=== PATIENT | male | born 1925 | race Caucasian/White ===

== ENCOUNTER 2016-12-08 19:05 | Emergency (ER) | payer MEDICARE, BC ==
[2016-12-08 19:16] VITALS: BP 180/53
[2016-12-08 19:45] LABS: CHLORIDE,CL 93 mmol/L (98-107); SODIUM,NA 129 mmol/L (136-145)
--- NOTE | 2016-12-08 20:00 | EDM.PDOC ---
ED HPI GENERAL MEDICAL PROBLEM - General Chief Complaint: Gastrointestinal Problem Stated Complaint: abdominal pain Time Seen by Provider: 12/08/16 19:57 Source of Information: Reports: Patient History Limitations: Reports: Other (Vague when reviewing history) - History of Present Illness INITIAL COMMENTS - FREE TEXT/NARRATIVE: Patient from [place] brought in for complaint of intermittent abdominal pain. Gradually worsening in intensity. Patient says pain waxes and wanes, periodically becoming sharp. Then improves. No specific trigger for pain, such as eating or drinking. Nothing specifically makes it better. Does not recall similar pain in past. Has had multiple small bowel movements that are very "hard" per patient. History of chronic constipation. He feels abdomen is a bit bloated. abdomen Pain Score (Numeric/FACES): 6 - Related Data Allergies Allergy/AdvReac Type Severity Reaction Status Date / Time bacitracin [From Cortisporin] Allergy Unknown Verified 12/08/16 19:24 bacitracin zinc Allergy Unknown Verified 12/08/16 19:24 [From Cortisporin] hydrocortisone Allergy Unknown Verified 12/08/16 19:24 [From Cortisporin] ibuprofen Allergy unknown Verified 12/08/16 19:24 neomycin [Neomycin] Allergy Unknown Verified 12/08/16 19:24 neomycin sulfate Allergy Unknown Verified 12/08/16 19:24 [From Cortisporin] Penicillins Allergy unknown Verified 12/08/16 19:24 polymyxin B Allergy Unknown Verified 12/08/16 19:24 [From Cortisporin] polymyxin B sulfate Allergy Unknown Verified 12/08/16 19:24 [From Cortisporin] Home Meds: Home Meds Acetaminophen [Tylenol] 650 mg PO Q6H PRN 09/12/13 [History] Aspirin [Halfprin] 81 mg PO DAILY 09/12/13 [History] Fish Oil/[place]-3 Fatty Acids [Fish Oil 1,000 MG] 1 each PO BID 09/12/13 [History ] Furosemide [Lasix] 20 mg PO DAILY 09/12/13 [History] Lisinopril [Zestril] 40 mg PO DAILY 09/12/13 [History] Menthol [Cough Drops] 1 lozenge PO ASDIRECTED PRN 09/12/13 [History] Multivitamin with Minerals [Multiple Vitamin] 1 tab PO DAILY 09/12/13 [History] Nitroglycerin [Nitrostat] 0.4 mg SL ASDIRECTED PRN 09/12/13 [History] Omeprazole 20 mg PO DAILY 09/12/13 [History] Sertraline HCl [Zoloft] 50 mg PO DAILY 09/12/13 [History] Simvastatin [Zocor] 20 mg PO BEDTIME 09/12/13 [History] Triamcinolone Acetonide [Triamcinolone Acetonide 0.025%] 15 gm .XX DAILY PRN [History] amLODIPine [Norvasc] 10 mg PO DAILY 09/12/13 [History] Cholecalciferol (Vitamin D3) [Vitamin D3] 5,000 unit PO DAILY 10/28/14 [History] Gabapentin [Neurontin] 200 mg PO BEDTIME 10/28/14 [History] Benzocaine [Anbesol] 1 applic MM ASDIRECTED PRN 12/22/15 [History] Benzocaine/Benzethon Cl [Lanacane First Aid [place]] 1 applic TP ASDIRECTED PRN [History] Dextran 70/Hypromellose [Artificial Tears] 1 drop OP TID 12/22/15 [History] Loratadine 10 mg PO DAILY 12/22/15 [History] Acetaminophen [Tylenol Arthritis] 1 tab PO BID 05/15/16 [History] Diazepam [Valium] 2 mg PO BID PRN #10 tab 05/15/16 [Rx] Magnesium Carbonate/Al Hydrox [Antacid Extra Strength Chw Tab] 1 tab PO ASDIRECTED 05/15/16 [History] Methyl Salicylate/Menthol [Salonpas Patch] 1 each TP Q8HR PRN 05/15/16 [History] Trolamine Salicylate [Sportscreme] 1 applic TOP ASDIRECTED PRN 05/15/16 [History ] traMADol [Ultram] 50 mg PO Q8H PRN #20 tablet 05/15/16 [Rx] Albuterol Sulfate 2.5 mg IH Q6H PRN 12/08/16 [History] Dextromethorphan HBr/B-Carlos [Cepacol Sorethroat-Cough Maggy] 1 each PO ASDIRECTED PRN 12/08/16 [History] Magnesium Citrate 296 ml PO ASDIRECTED #2 solution 12/08/16 [Rx] Methyl Salicylate/Menth/Camph [Bengay Ultra Strength] 1 applic TOP ASDIRECTED PRN 12/08/16 [History] Non-Formulary Medication [NF Drug] 1 applic TOP TID PRN 12/08/16 [History] Phenylephrine HCl [Sudogest PE] 10 mg PO Q4H PRN 12/08/16 [History] Past Medical History HEENT History: Reports: Cataract, Hard of Hearing, Macular Degeneration, Other ( See Below) Cardiovascular History: Reports: Angina, High Cholesterol, Hypertension, Other ( See Below) Gastrointestinal History: Reports: Chronic Constipation, GERD Musculoskeletal History: Reports: Osteoarthritis, Other (See Below) Neurological History: Reports: Neuropathy, Diabetic Psychiatric History: Reports: Anxiety, Depression Endocrine/Metabolic History: Reports: Diabetes, Type II Dermatologic History: Reports: Seborrheic Dermatitis - History Comment History Comment: Hyponatremia, hypo-osmolality. Social & Family History - Tobacco Use Smoking Status *Q: Former Smoker Used Tobacco, but Quit: Yes Month Tobacco Last Used: Unknown - Caffeine Use Caffeine Use: Reports: Coffee - Alcohol Use Days Per Week of Alcohol Use: 0 - Recreational Drug Use Recreational Drug Use: No Drug Use in Last 12 Months: No - Living Situation & Occupation Living situation: Reports: , Extended Care Facility ED ROS GENERAL - Review of Systems Review Of Systems: See Below Constitutional: Reports: Decreased Appetite. Denies: Fever, Chills, Weakness, Night Sweats, Diaphoresis HEENT: Reports: No Symptoms Respiratory: Reports: Other (Says he has coughed a few times and sneezed once today. ). Denies: Shortness of Breath, Wheezing, Pleuritic Chest Pain, Sputum Cardiovascular: Reports: No Symptoms GI/Abdominal: Reports: Abdominal Pain, Constipation, Decreased Appetite, Distension, Nausea. Denies: Diarrhea, Difficulty Swallowing, Hematemesis, Hematochezia, Melena, Vomiting : Reports: No Symptoms Musculoskeletal: Reports: No Symptoms Skin: Reports: No Symptoms Neurological: Reports: No Symptoms Psychiatric: Reports: No Symptoms ED EXAM, GI/ABD - Physical Exam Exam: See Below Exam Limited By: No Limitations General Appearance: Alert, WD/WN, No Apparent Distress, Other (Patient is in very happy mood. Readily able to sit up/transfer. Used walker easily to get to bathroom. ) Eyes: Bilateral: Normal Appearance, EOMI Ears: Normal External Exam Nose: Normal Inspection. No: Nasal Swelling, Nasal Drainage Throat/Mouth: Normal Inspection, Normal Voice, No Airway Compromise Head: Atraumatic, Normocephalic Neck: Normal Inspection, Supple, Non-Tender, Full Range of Motion Respiratory/Chest: No Respiratory Distress, Lungs Clear, No Accessory Muscle Use , Chest Non-Tender Cardiovascular: Regular Rate, Rhythm, Systolic Murmur GI/Abdominal: Soft, Hypoactive Bowel Sounds (all quadrants), Tenderness (mild, diffuse, non-focal), Other (slightly rounded appearance to abdomen). No: Guarding, Rebound, Rigidity (Male) Exam: Deferred Rectal (Males) Exam: Deferred Back Exam: Normal Inspection. No: CVA Tenderness (L), CVA Tenderness (R) Extremities: Normal Inspection, Normal Capillary Refill Neurological: Alert, Oriented, No Motor/Sensory Deficits Psychiatric: Normal Affect, Normal Mood Skin Exam: Warm, Dry, Intact, Normal Color Course - Vital Signs Last Recorded V/S: Last Vital Signs Temp 36.9 C 12/08/16 19:07 Pulse 42 L 12/08/16 19:07 Resp 24 H 12/08/16 19:07 BP 180/53 H 12/08/16 19:07 Pulse Ox 94 L 12/08/16 19:07 - Orders/Labs/Meds Orders: Active Orders 24 hr Category Date Time Status Abdomen 2V AP Flat Upright [CR] Stat Exams 12/08/16 19:22 Taken Labs: Laboratory Tests 12/08/16 12/08/16 12/08/16 Range/Units 19:25 19:25 19:45 WBC 8.5 (4.0-10.2) K/uL RBC 4.20 L (4.33-5.41) M/uL Hgb 12.3 L (13.1-16.8) g/dL Hct 35.5 L (39.0-49.0) % MCV 84.5 (84.0-98.0) fL MCH 29.3 (28.2-33.3) pg MCHC 34.6 (31.7-36.0) g/dL RDW 12.8 (11.2-14.1) % Plt Count 253 (150-350) K/uL Neut % (Auto) 68.2 (45.0-80.0) % Lymph % (Auto) 18.0 (10.0-50.0) % [place] % (Auto) 11.0 (2.0-14.0) % Eos % (Auto) 2.6 (0.0-5.0) % Baso % (Auto) 0.2 (0.0-2.0) % Neut # (Auto) 5.77 (1.40-7.00) K/uL Lymph # (Auto) 1.52 (0.50-3.50) K/uL [place] # (Auto) 0.93 (0.00-1.00) K/uL Eos # (Auto) 0.22 (0.00-0.50) K/uL Baso # (Auto) 0.02 (0.00-0.20) K/uL Sodium 129 L (136-145) mmol/L Potassium 4.0 (3.5-5.1) mmol/L Chloride 93 L (98-107) mmol/L Carbon Dioxide 25.4 (21.0-32.0) mmol/L BUN 10 (7-18) mg/dL Creatinine 0.71 (0.51-1.17) mg/dL Est Cr Clr Drug Dosing TNP Estimated GFR (MDRD) > 60 mL/min Glucose 132 H (74-106) mg/dL Calcium 8.5 (8.5-10.1) mg/dL Total Bilirubin 0.5 (0.2-1.0) mg/dL AST 25 (15-37) U/L ALT 28 (12-78) U/L Alkaline Phosphatase 65 (46-116) IU/L Total Protein 6.5 (6.4-8.2) g/dL Albumin 3.8 (3.4-5.0) g/dL Specimen Type Urinblad Urine Color Yellow Urine Appearance Clear Urine pH 6.0 (5.0-9.0) Ur Specific [place] 1.010 (1.005-1.030) Urine Protein Trace H (NEGATIVE) mg/dL Urine Glucose (UA) Negative (NEGATIVE) mg/dL Urine Ketones Negative (NEGATIVE) mg/dL Urine Occult Blood Trace-intact H (NEGATIVE) Urine Nitrite Negative (NEGATIVE) Urine Bilirubin Negative (NEGATIVE) Urine Urobilinogen 0.2 (0.2-1.0) E.U./dL Ur Leukocyte Esterase Negative (NEGATIVE) Urine RBC 0-5 /HPF Urine WBC 0-5 /HPF Ur Epithelial Cells Rare /LPF Urine Bacteria Rare (NONE TO FEW) /HPF - Radiology Interpretation Free Text/Narrative:: Abdominal film: no air/fluid levels noted. Larger amount of stool noted in ascending colon. No obvious obstruction/ileus - Re-Assessments/Exams Free Text/Narrative Re-Assessment/Exam: 12/08/16 20:39 Mild hyponatremia noted. Review of chart shows that he usually runs around 129- 132 for sodium level. Normal WBC. UA normal. [facility] noted prior to sending patient that Vital Signs have been stable for patient. He does usually run in this bradycardic range. Plan at this time is to have patient use Mag Citrate to see if promoting a bowel movement will improve his pain. He does have history of chronic constipation. If pain persists or symptoms change he will need to follow up for re-evaluation. Departure - Departure Time of Disposition: 20:13 Disposition: DC/[facility] to [facility] Condition: good Clinical Impression: Abdominal pain, Hyponatremia, Bradycardia Constipation Qualifiers: Constipation type: unspecified constipation type Qualified Code(s): K59.00 - Constipation, unspecified - Discharge Information Prescriptions: Magnesium Citrate 296 ml PO ASDIRECTED #2 solution Instructions: Constipation, Adult, [id number], Hyponatremia, [id number] Referrals: Jennifer Sepulveda PA [Primary Care Provider] - Forms: ED Department Discharge Additional Instructions: Constipation could be causing these symptoms. Plan will be to promote bowel movements and see if pain resolves. If it does not, or if you start developing other symptoms such as fevers, then you will need to be re-evaluated and have further testing done. We will have you drink one bottle of the Mag Citrate tonight. If this is constipation one dose does not usually fix it fully. Recommend 1/2 a bottle on day two, and possible the other half on day 3 depending on how you feel. OK to add extra salt to food. Review of previous labs shows that you often have sodium levels in this range. Recommend recheck of sodium and discuss follow up of sodium with primary provider. - My Orders Last 24 Hours: My Active Orders 12/08/16 19:22 Abdomen 2V AP Flat Upright [CR] Stat - Assessment/Plan Last 24 Hours: My Active Orders 12/08/16 19:22 Abdomen 2V AP Flat Upright [CR] Stat
[2016-12-08] MEDS ORDERED: Magnesium Citrate Solution 296 ML Bottle PO ONE ×2 (20:57→21:01)
== END 2016-12-08 21:07 ==
LOC: LL.ED 19:05
DX: K59.00 Constipation, unspecified (principal); E87.1 Hypo-osmolality and hyponatremia; R00.1 Bradycardia, unspecified; I10 Essential (primary) hypertension; E78.00 Pure hypercholesterolemia, unspecified; K21.9 Gastro-esophageal reflux disease without esophagitis; F41.9 Anxiety disorder, unspecified; F32.9 Major depressive disorder, single episode, unspecified; M19.90 Unspecified osteoarthritis, unspecified site; E11.40 Type 2 diabetes mellitus with diabetic neuropathy, unspecified; Z88.0 Allergy status to penicillin; Z88.8 Allergy status to other drugs, medicaments and biological substances; Z79.82 Long term (current) use of aspirin; Z79.899 Other long term (current) drug therapy; Z87.891 Personal history of nicotine dependence; Z88.1 Allergy status to other antibiotic agents; Z88.6 Allergy status to analgesic agent
CPT/HCPCS: 36415; 74020; 80053; 81001; 85025; 99283; 99284; A9270

== ENCOUNTER 2016-12-10 15:57 | Inpatient (IN) | payer MEDICARE, BC ==
[2016-12-10] MEDS ORDERED: Ondansetron 4 MG/2 ML SDV IVPUSH PRN (17:51)
[2016-12-10] MEDS ORDERED: Promethazine 25 MG/ML SDV IM PRN (17:51)
[2016-12-10] MEDS ORDERED: Sodium Chloride 0.9% 10 ML Syringe FLUSH PRN (17:51)
[2016-12-10] MEDS ORDERED: Nitroglycerin 0.4 MG Tab.SL SL PRN ×2 (17:56→22:28)
--- NOTE | 2016-12-10 18:29 | PCM.HP ---
H&P History of Present Illness - General Date of Service: 12/10/16 Admit Problem/Dx: Admission Diagnosis/Problem Admission Diagnosis/Problem Abdominal pain Source of Information: Patient, Old Records History Limitations: Reports: No Limitations - History of Present Illness Onset of Symptoms: Reports: Other (couple of days ago) Duration of Symptoms: Reports: Getting Worse Location: Reports: Chest, Abdomen, Back Quality: Reports: Pressure, Same as Previous Episode (one year delvis) Severity: Moderate Improves with: Reports: None Worsens with: Reports: Eating Associated Symptoms: Reports: Chest Pain, Loss of Appetite, Nausea/Vomiting, Shortness of Breath Abdomen Pain Score (Numeric/FACES): 3 - Related Data Allergies/Adverse Reactions: Allergies Allergy/AdvReac Type Severity Reaction Status Date / Time bacitracin [From Cortisporin] Allergy Unknown Verified 12/10/16 16:05 bacitracin zinc Allergy Unknown Verified 12/10/16 16:05 [From Cortisporin] hydrocortisone Allergy Unknown Verified 12/10/16 16:05 [From Cortisporin] ibuprofen Allergy unknown Verified 12/10/16 16:05 neomycin [Neomycin] Allergy Unknown Verified 12/10/16 16:05 neomycin sulfate Allergy Unknown Verified 12/10/16 16:05 [From Cortisporin] Penicillins Allergy unknown Verified 12/10/16 16:05 polymyxin B Allergy Unknown Verified 12/10/16 16:05 [From Cortisporin] polymyxin B sulfate Allergy Unknown Verified 12/10/16 16:05 [From Cortisporin] Home Medications: Home Meds Acetaminophen [Tylenol] 650 mg PO Q6H PRN 09/12/13 [History] Aspirin [Halfprin] 81 mg PO DAILY 09/12/13 [History] Fish Oil/[place]-3 Fatty Acids [Fish Oil 1,000 MG] 1 each PO BID 09/12/13 [History ] Furosemide [Lasix] 20 mg PO DAILY 09/12/13 [History] Lisinopril [Zestril] 40 mg PO DAILY 09/12/13 [History] Multivitamin with Minerals [Multiple Vitamin] 1 tab PO DAILY 09/12/13 [History] Nitroglycerin [Nitrostat] 0.4 mg SL ASDIRECTED PRN 09/12/13 [History] Omeprazole 20 mg PO DAILY 09/12/13 [History] Sertraline HCl [Zoloft] 50 mg PO DAILY 09/12/13 [History] Simvastatin [Zocor] 20 mg PO BEDTIME 09/12/13 [History] Triamcinolone Acetonide [Triamcinolone Acetonide 0.025%] 15 gm TOP DAILY PRN [History] amLODIPine [Norvasc] 10 mg PO DAILY 09/12/13 [History] Cholecalciferol (Vitamin D3) [Vitamin D3] 5,000 unit PO DAILY 10/28/14 [History] Gabapentin [Neurontin] 200 mg PO BEDTIME 10/28/14 [History] Benzocaine [Anbesol] 1 applic TOP ASDIRECTED PRN 12/22/15 [History] Benzocaine/Benzethon Cl [Lanacane First Aid [place]] 1 applic TP ASDIRECTED PRN [History] Dextran 70/Hypromellose [Artificial Tears] 1 drop OP TID 12/22/15 [History] Loratadine 10 mg PO DAILY 12/22/15 [History] Acetaminophen [Tylenol Arthritis] 1 tab PO TID 05/15/16 [History] Diazepam [Valium] 2 mg PO BID PRN #10 tab 05/15/16 [Rx] Magnesium Carbonate/Al Hydrox [Antacid Extra Strength Chw Tab] 1 tab PO ASDIRECTED 05/15/16 [History] Methyl Salicylate/Menthol [Salonpas Patch] 1 each TP Q8HR PRN 05/15/16 [History] Trolamine Salicylate [Sportscreme] 1 applic TOP ASDIRECTED PRN 05/15/16 [History ] traMADol [Ultram] 50 mg PO Q8H PRN #20 tablet 05/15/16 [Rx] Albuterol Sulfate 2.5 mg IH Q6H PRN 12/08/16 [History] Dextromethorphan HBr/B-Carlos [Cepacol Sorethroat-Cough Maggy] 1 each PO ASDIRECTED PRN 12/08/16 [History] Magnesium Citrate 296 ml PO ASDIRECTED #2 solution 12/08/16 [Rx] Methyl Salicylate/Menth/Camph [Bengay Ultra Strength] 1 applic TOP ASDIRECTED PRN 12/08/16 [History] Non-Formulary Medication [NF Drug] 1 applic TOP TID PRN 12/08/16 [History] Phenylephrine HCl [Sudogest PE] 10 mg PO Q4H PRN 12/08/16 [History] Bisacodyl 10 mg RECTAL DAILY PRN 12/10/16 [History] Melaleuca 1 applic TOP ASDIRECTED PRN 12/10/16 [History] Past Medical History HEENT History: Reports: Cataract, Hard of Hearing, Impaired Vision, Macular Degeneration, Other (See Below) Other HEENT History: Has bilateral hearing aides. Wears glasses. HX. Macular degeneration Cardiovascular History: Reports: Angina, High Cholesterol, Hypertension, Other ( See Below) Respiratory History: Reports: COPD, Pneumonia, Recurrent Gastrointestinal History: Reports: Chronic Constipation, GERD Musculoskeletal History: Reports: Osteoarthritis, Other (See Below) Neurological History: Reports: Neuropathy, Diabetic Psychiatric History: Reports: Anxiety, Depression Endocrine/Metabolic History: Reports: Diabetes, Type II Dermatologic History: Reports: Seborrheic Dermatitis - History Comment History Comment: Hyponatremia, hypo-osmolality. Social & Family History - Tobacco Use Smoking Status *Q: Former Smoker Used Tobacco, but Quit: Yes Month Tobacco Last Used: Unknown - Caffeine Use Caffeine Use: Reports: Coffee - Alcohol Use Days Per Week of Alcohol Use: 0 - Recreational Drug Use Recreational Drug Use: No Drug Use in Last 12 Months: No - Living Situation & Occupation Living situation: Reports: , Extended Care Facility H&P Review of Systems - Review of Systems: Review Of Systems: See Below General: Reports: Weakness, Decreased Appetite HEENT: Reports: No Symptoms Pulmonary: Reports: Shortness of Breath Cardiovascular: Reports: Chest Pain Gastrointestinal: Reports: Abdominal Pain, Anorexia, Constipation, Decreased Appetite, Distension, Nausea, Vomiting Genitourinary: Reports: No Symptoms Musculoskeletal: Reports: No Symptoms Skin: Reports: No Symptoms Psychiatric: Reports: No Symptoms Neurological: Reports: No Symptoms Hematologic/Lymphatic: Reports: No Symptoms Immunologic: Reports: No Symptoms Exam - Exam Exam: See Below - Vital Signs Vital Signs: Last Vital Signs Temp 98.0 F 12/10/16 16:04 Pulse 48 L 12/10/16 16:04 Resp 20 12/10/16 16:04 BP 157/72 H 12/10/16 16:04 Pulse Ox 94 L 12/10/16 16:04 Weight: 176 lb - Exam General: Alert, Cooperative, Mild Distress HEENT: Conjunctiva Clear, Mucosa Moist & [place], Nares Patent, Posterior Pharynx Clear Neck: Trachea Midline Lungs: Normal Respiratory Effort, Decreased Breath Sounds Cardiovascular: Regular Rate, Regular Rhythm Abdomen: Normal Bowel Sounds, Distention, Tenderness (Male) Exam: No Hernia Rectal (Males) Exam: Normal Exam Back Exam: Normal Inspection Extremities: Normal Inspection Skin: Warm, Dry, Intact Neuro Extensive - Mental Status: Alert, Normal Mood/Affect Psychiatric: Alert, Normal Affect, Normal Mood - Patient Data Lab Results last 24 hrs: Laboratory Results - last 24 hr 12/10/16 Range/Units 18:10 WBC 9.1 (4.0-10.2) K/uL RBC 4.19 L (4.33-5.41) M/uL Hgb 12.3 L (13.1-16.8) g/dL Hct 35.7 L (39.0-49.0) % MCV 85.2 (84.0-98.0) fL MCH 29.4 (28.2-33.3) pg MCHC 34.5 (31.7-36.0) g/dL RDW 12.6 (11.2-14.1) % Plt Count 273 (150-350) K/uL Neut % (Auto) 75.8 (45.0-80.0) % Lymph % (Auto) 11.0 (10.0-50.0) % [place] % (Auto) 10.9 (2.0-14.0) % Eos % (Auto) 1.9 (0.0-5.0) % Baso % (Auto) 0.4 (0.0-2.0) % Neut # (Auto) 6.90 (1.40-7.00) K/uL Lymph # (Auto) 1.00 (0.50-3.50) K/uL [place] # (Auto) 0.99 (0.00-1.00) K/uL Eos # (Auto) 0.17 (0.00-0.50) K/uL Baso # (Auto) 0.04 (0.00-0.20) K/uL Result Diagrams: 12/10/16 18:10 *Q Meaningful Use (ADM) - VTE *Q VTE Criteria *Q: - Stroke *Q Stroke Criteria *Q: - AMI *Q AMI Criteria *Q: - Problem List (1) Abdominal pain SNOMED Code(s): 44216160 ICD Code: R10.9 - UNSPECIFIED ABDOMINAL PAIN Status: Acute Priority: High Current Visit: No (2) Atypical chest pain SNOMED Code(s): 945917368 ICD Code: R07.89 - OTHER CHEST PAIN Status: Acute Priority: High Current Visit: No (3) Bradycardia SNOMED Code(s): 40012841 ICD Code: R00.1 - BRADYCARDIA, UNSPECIFIED Status: Acute Priority: Medium Current Visit: No (4) Constipation SNOMED Code(s): 31363921 ICD Code: K59.00 - CONSTIPATION, UNSPECIFIED Status: Acute Priority: High Current Visit: No Qualifiers: Constipation type: unspecified constipation type Qualified Code(s): K59.00 - Constipation, unspecified (5) Hyponatremia SNOMED Code(s): 48657264 ICD Code: E87.1 - HYPO-OSMOLALITY AND HYPONATREMIA Status: Acute Current Visit: No (6) Neck and shoulder pain SNOMED Code(s): 36550869 ICD Code: M54.2 - CERVICALGIA; M25.519 - PAIN IN UNSPECIFIED SHOULDER Status: Acute Priority: Medium Current Visit: No Problem List Initiated/Reviewed/Updated: Yes Orders Last 24hrs: Active Orders 24 hr Category Date Time Status Patient Status [ADT] Routine ADT 12/10/16 18:05 Active Ambulate [RC] ASDIRECTED Care 12/10/16 18:04 Active Antiembolic Devices [RC] .Routine Care 12/10/16 18:13 Active EKG Documentation Completion [RC] ASDIRECTED Care 12/10/16 17:56 Active Height and Weight [RC] UPON Care 12/10/16 18:04 Active Intake and Output [RC] QSHIFT Care 12/10/16 18:10 Active May Shower [RC] ASDIRECTED Care 12/10/16 18:04 Active Oxygen Therapy [RC] PRN Care 12/10/16 18:11 Active Peripheral IV Care [RC] . DIRECTED Care 12/10/16 17:53 Active Pulse Oximetry [RC] PRN Care 12/10/16 18:11 Active VTE/DVT Education [RC] PER UNIT ROUTINE Care 12/10/16 18:13 Active Vaccines to be Administered [RC] PER UNIT ROUTINE Care 12/10/16 18:13 Active Vital Signs [RC] QID Care 12/10/16 18:05 Active Nothing per Oral Now Diet [DIET] Diet 12/10/16 Dinner Active Abdomen Pelvis w wo Cont [CT] Routine Exams 12/11/16 07:00 Ordered Abdomen Series w Chest 1V [CR] Routine Exams 12/10/16 17:51 Ordered AMYLASE [CHEM] Routine Lab 12/10/16 17:51 Ordered C-REACTIVE PROTEIN [CHEM] Routine Lab 12/10/16 17:51 Ordered COMPREHENSIVE METABOLIC PN,CMP [CHEM] Routine Lab 12/10/16 17:51 Ordered LACTIC ACID [CHEM] Routine Lab 12/10/16 17:51 Ordered LIPASE [CHEM] Routine Lab 12/10/16 17:51 Ordered OCCULT BLOOD SCREEN [OP] Routine Lab 12/10/16 17:51 Uncollected TROPONIN I [CHEM] Routine Lab 12/10/16 17:51 Ordered UA W/MICROSCOPIC [URIN] Routine Lab 12/10/16 17:51 Uncollected Albuterol [Proventil Neb Soln] Med 12/10/16 17:56 Active 2.5 mg NEB Q6H PRN Famotidine [Pepcid] Med 12/10/16 18:00 Active 20 mg IVPUSH BID Nitroglycerin [Nitrostat] Med 12/10/16 17:56 Active 0.4 mg SL ASDIRECTED PRN Ondansetron [Zofran] Med 12/10/16 17:51 Active 4 mg IVPUSH Q4H PRN Polyvinyl Alcohol [LiquiTears 1.4% Ophth Soln] Med 12/10/16 18:00 Active 0 ml EYEBOTH TID Promethazine [Phenergan] Med 12/10/16 17:51 Active 12.5 mg IM Q6H PRN Sodium Chloride 0.9% [Normal Saline] 1,000 ml Med 12/10/16 18:15 Active IV ASDIRECTED Sodium Chloride 0.9% [Saline Flush] Med 12/10/16 17:51 Active 10 ml FLUSH ASDIRECTED PRN Sodium Chloride 0.9% [Saline Flush] Med 12/10/16 20:00 Active 10 ml FLUSH Q12HR DVT/VTE Prophylaxis Reflex [OM.PC] Routine Oth 12/10/16 18:04 Ordered GM Immunization Reflex [OM.PC] Click To Edit Oth 12/10/16 18:04 Ordered Peripheral IV Insertion Adult [OM.PC] Routine Oth 12/10/16 17:51 Ordered Resuscitation Status Routine Resus Stat 12/10/16 18:04 Ordered EKG 12 Lead [EK] Routine Ther 12/10/16 17:51 Ordered Medication Orders Albuterol (Proventil Neb Soln) 2.5 mg NEB Q6H PRN PRN Reason: dyspnea/wheeze Artificial Tears (Liquitears 1.4% Ophth Soln) 0 ml EYEBOTH TID CHUY Famotidine (Pepcid) 20 mg IVPUSH BID CHUY Sodium Chloride (Normal Saline) 1,000 mls @ 75 mls/hr IV ASDIRECTED CHUY Nitroglycerin (Nitrostat) 0.4 mg SL ASDIRECTED PRN PRN Reason: Chest Pain Ondansetron HCl (Zofran) 4 mg IVPUSH Q4H PRN PRN Reason: Nausea/Vomiting Promethazine HCl (Phenergan) 12.5 mg IM Q6H PRN PRN Reason: Nausea/Vomiting Sodium Chloride (Saline Flush) 10 ml FLUSH ASDIRECTED PRN PRN Reason: Keep Vein Open Sodium Chloride (Saline Flush) 10 ml FLUSH Q12HR [facility] Assessment/Plan Comment:: 12/10/16 Aquilino Elam MD Abdomenal pain and distention. Anorexia and emesis. Laxatives (mag citrate x2) and suppository very little results.Admit inpatient for IV fluids.
[2016-12-10 18:36] LABS: CHLORIDE,CL 92 mmol/L (98-107); SODIUM,NA 127 mmol/L (136-145)
[2016-12-10] MEDS: metroNIDAZOLE/Normal Saline 500 MG in Premix Bag 1 BAG IV SCH (19:28)
[2016-12-10] MEDS: Famotidine 20 MG/2 ML SDV IVPUSH SCH (19:28)
[2016-12-10] MEDS: Polyvinyl Alcohol 1.4% Ophth Soln 15 ML Bottle EYEBOTH SCH (19:28)
[2016-12-10] MEDS: Sodium Chloride 0.9% 10 ML Syringe FLUSH SCH (19:29)
[2016-12-10] MEDS: Ciprofloxacin in D5W 400 MG in Premix Bag 1 BAG IV SCH ×2 (20:41)
[2016-12-10] MEDS: Sodium Chloride 0.9% 1,000 ML IV SCH (20:41)
[2016-12-10] MEDS ORDERED: fentaNYL 100 MCG/2 ML SDV IVPUSH PRN (21:17)
[2016-12-11] MEDS: metroNIDAZOLE/Normal Saline 500 MG in Premix Bag 1 BAG IV SCH ×3 (01:07→18:06)
[2016-12-11] MEDS: Enalaprilat 1.25 MG/ML SDV IVPUSH SCH ×5 (01:08→23:27)
[2016-12-11 07:39] LABS: CHLORIDE,CL 95 mmol/L (98-107); SODIUM,NA 131 mmol/L (136-145)
[2016-12-11] MEDS: Ciprofloxacin in D5W 400 MG in Premix Bag 1 BAG IV SCH ×4 (07:45→19:48)
[2016-12-11] MEDS: Polyvinyl Alcohol 1.4% Ophth Soln 15 ML Bottle EYEBOTH SCH ×3 (07:47→18:07)
[2016-12-11] MEDS: Famotidine 20 MG/2 ML SDV IVPUSH SCH ×2 (07:47→18:02)
[2016-12-11] MEDS ORDERED: Iopamidol 612 MG/ML 100 ML Bottle IVPUSH ONE (09:00)
[2016-12-11] MEDS: Sodium Chloride 0.9% 10 ML Syringe FLUSH SCH ×2 (12:25→19:55)
[2016-12-11] MEDS: Acetaminophen 325 MG Tab PO PRN ×2 (13:45→22:09)
[2016-12-11] MEDS: Sodium Chloride 0.9% 1,000 ML IV SCH (16:35)
--- NOTE | 2016-12-11 17:30 | PCM.PN ---
- General Info Date of Service: 12/11/16 Admission Dx/Problem (Free Text): Admission Diagnosis/Problem Admission Diagnosis/Problem Abdominal pain Functional Status: Reports: pain controlled - Review of Systems General: Reports: Appetite (improved) HEENT: Reports: headaches Pulmonary: Reports: no symptoms Cardiovascular: Reports: No Symptoms Gastrointestinal: Reports: Abdominal pain (improved), Other (had a good bowel movement this AM) Genitourinary: Reports: no symptoms Musculoskeletal: Reports: no symptoms Skin: Reports: no symptoms Neurological: Reports: No Symptoms Psychiatric: Reports: no symptoms - Patient Data Vitals - most recent: Last Vital Signs Temp 96.7 F 12/11/16 16:00 Pulse 51 L 12/11/16 16:00 Resp 14 12/11/16 16:00 BP 131/64 12/11/16 16:00 Pulse Ox 94 L 12/11/16 11:59 Weight - most recent: 175 lb 15.991 oz I&O - last 24 hours: Intake & Output 12/11/16 12/11/16 12/11/16 06:59 14:59 22:59 Intake Total 678 390 Output Total 475 350 100 Balance 203 40 -100 Lab Results last 24 hrs: Laboratory Results - last 24 hr 12/10/16 12/10/16 12/10/16 Range/Units 18:10 18:10 18:10 WBC 9.1 (4.0-10.2) K/uL RBC 4.19 L (4.33-5.41) M/uL Hgb 12.3 L (13.1-16.8) g/dL Hct 35.7 L (39.0-49.0) % MCV 85.2 (84.0-98.0) fL MCH 29.4 (28.2-33.3) pg MCHC 34.5 (31.7-36.0) g/dL RDW 12.6 (11.2-14.1) % Plt Count 273 (150-350) K/uL Neut % (Auto) 75.8 (45.0-80.0) % Lymph % (Auto) 11.0 (10.0-50.0) % [place] % (Auto) 10.9 (2.0-14.0) % Eos % (Auto) 1.9 (0.0-5.0) % Baso % (Auto) 0.4 (0.0-2.0) % Neut # (Auto) 6.90 (1.40-7.00) K/uL Lymph # (Auto) 1.00 (0.50-3.50) K/uL [place] # (Auto) 0.99 (0.00-1.00) K/uL Eos # (Auto) 0.17 (0.00-0.50) K/uL Baso # (Auto) 0.04 (0.00-0.20) K/uL ESR (0-30) mm/hr Sodium 127 L (136-145) mmol/L Potassium 4.3 (3.5-5.1) mmol/L Chloride 92 L (98-107) mmol/L Carbon Dioxide 30.0 (21.0-32.0) mmol/L BUN 16 (7-18) mg/dL Creatinine 0.86 (0.51-1.17) mg/dL Est Cr Clr Drug Dosing 52.55 mL/min Estimated GFR (MDRD) > 60 mL/min Glucose 122 H (74-106) mg/dL Lactic Acid 0.9 (0.4-2.0) mmol/L Calcium 8.3 L (8.5-10.1) mg/dL Magnesium (1.8-2.4) mg/dL Total Bilirubin 0.8 (0.2-1.0) mg/dL AST 32 (15-37) U/L ALT 34 (12-78) U/L Alkaline Phosphatase 60 (46-116) IU/L Lactate Dehydrogenase (81-234) U/L Troponin I 0.012 (0.000-0.056) ng/mL C-Reactive Protein 0.4 (<=0.9) mg/dL Total Protein 6.3 L (6.4-8.2) g/dL Albumin 3.8 (3.4-5.0) g/dL Amylase 65 (25-115) U/L Lipase 313 (73-393) U/L Specimen Type Urine Color Urine Appearance Urine pH (5.0-9.0) Ur Specific [place] (1.005-1.030) Urine Protein (NEGATIVE) mg/dL Urine Glucose (UA) (NEGATIVE) mg/dL Urine Ketones (NEGATIVE) mg/dL Urine Occult Blood (NEGATIVE) Urine Nitrite (NEGATIVE) Urine Bilirubin (NEGATIVE) Urine Urobilinogen (0.2-1.0) E.U./dL Ur Leukocyte Esterase (NEGATIVE) Urine RBC /HPF Urine WBC /HPF Ur Epithelial Cells /LPF Urine Bacteria (NONE TO FEW) /HPF 12/10/16 12/11/16 12/11/16 Range/Units 22:00 06:55 06:55 WBC 9.0 (4.0-10.2) K/uL RBC 4.42 (4.33-5.41) M/uL Hgb 13.0 L (13.1-16.8) g/dL Hct 37.7 L (39.0-49.0) % MCV 85.3 (84.0-98.0) fL MCH 29.4 (28.2-33.3) pg MCHC 34.5 (31.7-36.0) g/dL RDW 12.7 (11.2-14.1) % Plt Count 267 (150-350) K/uL Neut % (Auto) 64.2 (45.0-80.0) % Lymph % (Auto) 22.5 (10.0-50.0) % [place] % (Auto) 10.0 (2.0-14.0) % Eos % (Auto) 2.9 (0.0-5.0) % Baso % (Auto) 0.4 (0.0-2.0) % Neut # (Auto) 5.77 (1.40-7.00) K/uL Lymph # (Auto) 2.02 (0.50-3.50) K/uL [place] # (Auto) 0.90 (0.00-1.00) K/uL Eos # (Auto) 0.26 (0.00-0.50) K/uL Baso # (Auto) 0.04 (0.00-0.20) K/uL ESR 3 (0-30) mm/hr Sodium 131 L (136-145) mmol/L Potassium 3.9 (3.5-5.1) mmol/L Chloride 95 L (98-107) mmol/L Carbon Dioxide 28.0 (21.0-32.0) mmol/L BUN 12 (7-18) mg/dL Creatinine 0.81 (0.51-1.17) mg/dL Est Cr Clr Drug Dosing 55.79 mL/min Estimated GFR (MDRD) > 60 mL/min Glucose 117 H (74-106) mg/dL Lactic Acid (0.4-2.0) mmol/L Calcium 8.1 L (8.5-10.1) mg/dL Magnesium 2.0 (1.8-2.4) mg/dL Total Bilirubin 0.9 (0.2-1.0) mg/dL AST 35 (15-37) U/L ALT 38 (12-78) U/L Alkaline Phosphatase 55 (46-116) IU/L Lactate Dehydrogenase 161 (81-234) U/L Troponin I 0.017 (0.000-0.056) ng/mL C-Reactive Protein 0.2 (<=0.9) mg/dL Total Protein 6.5 (6.4-8.2) g/dL Albumin 3.7 (3.4-5.0) g/dL Amylase (25-115) U/L Lipase (73-393) U/L Specimen Type Urincc Urine Color Yellow Urine Appearance Clear Urine pH 7.5 (5.0-9.0) Ur Specific [place] 1.015 (1.005-1.030) Urine Protein Negative (NEGATIVE) mg/dL Urine Glucose (UA) Negative (NEGATIVE) mg/dL Urine Ketones 15 H (NEGATIVE) mg/dL Urine Occult Blood Negative (NEGATIVE) Urine Nitrite Negative (NEGATIVE) Urine Bilirubin Negative (NEGATIVE) Urine Urobilinogen 0.2 (0.2-1.0) E.U./dL Ur Leukocyte Esterase Negative (NEGATIVE) Urine RBC Not seen /HPF Urine WBC 0-5 /HPF Ur Epithelial Cells Few /LPF Urine Bacteria Rare (NONE TO FEW) /HPF Sid Results last 24 hrs: Microbiology 12/10/16 17:51 Occult Blood - Final Stool / Feces Med Orders - Current: Current Medications Acetaminophen (Tylenol) 650 mg PO Q3H PRN PRN Reason: Pain/Fever Last Admin: 12/11/16 13:45 Dose: 650 mg Albuterol (Proventil Neb Soln) 2.5 mg NEB Q6H PRN PRN Reason: dyspnea/wheeze Artificial Tears (Liquitears 1.4% Ophth Soln) 0 ml EYEBOTH TID CHUY Last Admin: 12/11/16 12:25 Dose: Not Given Enalaprilat (Vasotec Iv) 0.625 mg IVPUSH Q6H [facility] Last Admin: 12/11/16 12:25 Dose: 0.625 mg Famotidine (Pepcid) 20 mg IVPUSH BID [facility] Last Admin: 12/11/16 07:47 Dose: 20 mg Fentanyl (Sublimaze) 25 mcg IVPUSH Q3H PRN PRN Reason: Pain Sodium Chloride (Normal Saline) 1,000 mls @ 75 mls/hr IV ASDIRECTED [facility] Last Admin: 12/11/16 16:35 Dose: 75 mls/hr Metronidazole 500 mg/ Premix 100 mls @ 100 mls/hr IV Q8H [facility] Last Admin: 12/11/16 10:16 Dose: 100 mls/hr Ciprofloxacin/Dextrose 400 mg/ (Premix) 200 mls @ 200 mls/hr IV Q12HR [facility] Last Admin: 12/11/16 07:45 Dose: 200 mls/hr Nitroglycerin (Nitrostat) 0.4 mg SL Q5M PRN PRN Reason: Chest Pain Ondansetron HCl (Zofran) 4 mg IVPUSH Q4H PRN PRN Reason: Nausea/Vomiting Promethazine HCl (Phenergan) 12.5 mg IM Q6H PRN PRN Reason: Nausea/Vomiting Sodium Chloride (Saline Flush) 10 ml FLUSH ASDIRECTED PRN PRN Reason: Keep Vein Open Sodium Chloride (Saline Flush) 10 ml FLUSH Q12HR [facility] Last Admin: 12/11/16 12:25 Dose: Not Given Discontinued Medications Iopamidol (Isovue-300 (61%)) 100 ml IVPUSH ONETIME ONE Stop: 12/11/16 09:01 Last Admin: 12/11/16 10:04 Dose: 100 ml Nitroglycerin (Nitrostat) 0.4 mg SL ASDIRECTED PRN PRN Reason: Chest Pain Sodium Chloride (Saline Flush) 10 ml FLUSH ASDIRECTED PRN PRN Reason: Keep Vein Open Last Admin: 12/11/16 10:13 Dose: 10 ml - Exam General: alert, cooperative, no acute distress HEENT: Mucous membr. moist/pink Neck: trachea midline, no JVD Lungs: Normal respiratory effort, Decreased breath sounds Cardiovascular: Regular Rate, Regular Rhythm Abdomen: bowel sounds present, soft, tenderness (over RLQ herniorrhaphy scar), distension (decreased) (Male) Exam: No Hernia Back Exam: Normal Inspection Extremities: no edema, no calf tenderness Skin: warm, dry, intact Neurological: no new focal deficit Psy/Mental Status: alert, normal affect, normal mood - Problem List & Annotations (1) Abdominal pain SNOMED Code(s): 37500155 Code(s): R10.9 - UNSPECIFIED ABDOMINAL PAIN Status: Acute Priority: High Current Visit: No (2) Atypical chest pain SNOMED Code(s): 716773323 Code(s): R07.89 - OTHER CHEST PAIN Status: Acute Priority: High Current Visit: No (3) Bradycardia SNOMED Code(s): 52480464 Code(s): R00.1 - BRADYCARDIA, UNSPECIFIED Status: Acute Priority: Medium Current Visit: No (4) Constipation SNOMED Code(s): 70104838 Code(s): K59.00 - CONSTIPATION, UNSPECIFIED Status: Acute Priority: High Current Visit: No Qualifiers: Constipation type: unspecified constipation type Qualified Code(s): K59.00 - Constipation, unspecified (5) Hyponatremia SNOMED Code(s): 21534660 Code(s): E87.1 - HYPO-OSMOLALITY AND HYPONATREMIA Status: Acute Current Visit: No (6) Neck and shoulder pain SNOMED Code(s): 74524782 Code(s): M54.2 - CERVICALGIA; M25.519 - PAIN IN UNSPECIFIED SHOULDER Status : Acute Priority: Medium Current Visit: No - Problem List Review Problem List Initiated/Reviewed/Updated: Yes - My Orders Last 24 Hours: My Active Orders 12/10/16 17:51 Abdomen Series w Chest 1V [CR] Routine Ondansetron [Zofran] 4 mg IVPUSH Q4H PRN Promethazine [Phenergan] 12.5 mg IM Q6H PRN Sodium Chloride 0.9% [Saline Flush] 10 ml FLUSH ASDIRECTED PRN Peripheral IV Insertion Adult [OM.PC] Routine 12/10/16 17:53 Peripheral IV Care [RC] 00,16,20 12/10/16 17:56 EKG Documentation Completion [RC] ASDIRECTED Albuterol [Proventil Neb Soln] 2.5 mg NEB Q6H PRN 12/10/16 18:00 Famotidine [Pepcid] 20 mg IVPUSH BID Polyvinyl Alcohol [LiquiTears 1.4% Ophth Soln] 0 ml EYEBOTH TID metroNIDAZOLE/Normal Saline [Flagyl 500 MG in NS 100 ML] 500 mg Premix Bag 1 bag IV Q8H 12/10/16 18:04 Ambulate [RC] 0800 Height and Weight [RC] UPON May Shower [RC] 0800 DVT/VTE Prophylaxis Reflex [OM.PC] Routine GM Immunization Reflex [OM.PC] Click To Edit Resuscitation Status Routine 12/10/16 18:05 Patient Status [ADT] Routine Vital Signs [RC] QID 12/10/16 18:10 Intake and Output [RC] QSHIFT 12/10/16 18:11 Oxygen Therapy [RC] PRN Pulse Oximetry [RC] QID 12/10/16 18:13 Antiembolic Devices [RC] .Routine VTE/DVT Education [RC] PER UNIT ROUTINE Vaccines to be Administered [RC] PER UNIT ROUTINE 12/10/16 18:15 Sodium Chloride 0.9% [Normal Saline] 1,000 ml IV ASDIRECTED 12/10/16 20:00 Ciprofloxacin in D5W [Cipro in D5W 400 MG/200 ML] 400 mg Premix Bag 1 bag IV Q12HR Sodium Chloride 0.9% [Saline Flush] 10 ml FLUSH Q12HR 12/10/16 21:17 fentaNYL [Sublimaze] 25 mcg IVPUSH Q3H PRN 12/10/16 22:28 Nitroglycerin [Nitrostat] 0.4 mg SL Q5M PRN 12/10/16 Dinner Nothing per Oral Now Diet [DIET] 12/11/16 00:00 Enalaprilat [Vasotec IV] 0.625 mg IVPUSH Q6H 12/11/16 05:11 Chest 2V [CR] Routine 12/11/16 07:00 Abdomen Pelvis w Cont [CT] Routine 12/11/16 13:27 Acetaminophen [Tylenol] 650 mg PO Q3H PRN 12/12/16 05:11 CBC WITH AUTO DIFF [HEME] DAILY CMP [COMPREHENSIVE METABOLIC PN,CMP] [CHEM] DAILY 12/13/16 05:11 CBC WITH AUTO DIFF [HEME] DAILY CMP [COMPREHENSIVE METABOLIC PN,CMP] [CHEM] DAILY - Plan Plan:: 12/10/16 Aquilino Elam MD Abdomenal pain and distention. Anorexia and emesis. Laxatives (mag citrate x2) and suppository very little results.Admit inpatient for IV fluids. 12/11/16 Aquilino Elam MD He is feeling better today. After CT oral contrast he had a large bowel movement. CT scan results pending. He says he has URI and headache.
[2016-12-11] MEDS: Sodium Chloride 0.9% 10 ML Syringe FLUSH PRN (23:32)
[2016-12-12] MEDS: metroNIDAZOLE/Normal Saline 500 MG in Premix Bag 1 BAG IV SCH ×3 (01:31→19:17)
[2016-12-12] MEDS: Sodium Chloride 0.9% 10 ML Syringe FLUSH PRN (01:32)
[2016-12-12] MEDS: Enalaprilat 1.25 MG/ML SDV IVPUSH SCH ×2 (05:16→11:09)
[2016-12-12] MEDS: Sodium Chloride 0.9% 1,000 ML IV SCH (07:25)
[2016-12-12 08:00] LABS: CHLORIDE,CL 99 mmol/L (98-107); SODIUM,NA 132 mmol/L (136-145)
[2016-12-12] MEDS: Ciprofloxacin in D5W 400 MG in Premix Bag 1 BAG IV SCH ×4 (08:11→21:06)
[2016-12-12] MEDS: Polyvinyl Alcohol 1.4% Ophth Soln 15 ML Bottle EYEBOTH SCH ×3 (08:12→19:20)
[2016-12-12] MEDS: Sodium Chloride 0.9% 10 ML Syringe FLUSH SCH ×2 (08:12→19:29)
[2016-12-12] MEDS: Famotidine 20 MG/2 ML SDV IVPUSH SCH ×2 (08:12→19:20)
[2016-12-12] MEDS ORDERED: LORazepam 0.5 MG Tab PO ONE (16:00)
[2016-12-12] MEDS ORDERED: amLODIPine 5 MG Tab PO ONE (16:00)
[2016-12-12] MEDS ORDERED: Sodium Chloride 0.9% 1,000 ML IV SCH (16:00)
[2016-12-12] MEDS ORDERED: traMADol 50 MG Tab PO PRN (16:00)
[2016-12-12] MEDS: Acetaminophen 325 MG Tab PO PRN (16:23)
[2016-12-12] MEDS: LORazepam 0.5 MG Tab PO SCH (19:22)
[2016-12-12] MEDS: Lisinopril 20 MG Tab PO SCH (19:25)
--- NOTE | 2016-12-12 22:59 | PCM.PN ---
- General Info Date of Service: 12/12/16 Admission Dx/Problem (Free Text): Admission Diagnosis/Problem Admission Diagnosis/Problem Abdominal pain Functional Status: Reports: tolerating diet - Review of Systems General: Reports: Appetite (decreased) HEENT: Reports: headaches Pulmonary: Reports: no symptoms Cardiovascular: Reports: No Symptoms Gastrointestinal: Reports: Decreased appetite, Other (felt better this AM now feels distended) Genitourinary: Reports: no symptoms Musculoskeletal: Reports: no symptoms Skin: Reports: no symptoms Neurological: Reports: Headache Psychiatric: Reports: anxiety - Patient Data Vitals - most recent: Last Vital Signs Temp 98.0 F 12/12/16 20:00 Pulse 70 12/12/16 20:00 Resp 20 12/12/16 20:00 BP 179/70 H 12/12/16 20:00 Pulse Ox 97 12/12/16 20:00 Weight - most recent: 175 lb 15.991 oz I&O - last 24 hours: Intake & Output 12/12/16 12/12/16 12/12/16 06:59 14:59 22:59 Intake Total 1449 750 300 Output Total 450 300 Balance 999 750 0 Lab Results last 24 hrs: Laboratory Results - last 24 hr 12/12/16 12/12/16 Range/Units 07:00 07:00 WBC 6.6 (4.0-10.2) K/uL RBC 4.11 L (4.33-5.41) M/uL Hgb 12.2 L (13.1-16.8) g/dL Hct 35.4 L (39.0-49.0) % MCV 86.1 (84.0-98.0) fL MCH 29.7 (28.2-33.3) pg MCHC 34.5 (31.7-36.0) g/dL RDW 12.7 (11.2-14.1) % Plt Count 255 (150-350) K/uL Neut % (Auto) 69.3 (45.0-80.0) % Lymph % (Auto) 15.5 (10.0-50.0) % [place] % (Auto) 10.4 (2.0-14.0) % Eos % (Auto) 4.3 (0.0-5.0) % Baso % (Auto) 0.5 (0.0-2.0) % Neut # (Auto) 4.56 (1.40-7.00) K/uL Lymph # (Auto) 1.02 (0.50-3.50) K/uL [place] # (Auto) 0.68 (0.00-1.00) K/uL Eos # (Auto) 0.28 (0.00-0.50) K/uL Baso # (Auto) 0.03 (0.00-0.20) K/uL Sodium 132 L (136-145) mmol/L Potassium 3.8 (3.5-5.1) mmol/L Chloride 99 (98-107) mmol/L Carbon Dioxide 26.7 (21.0-32.0) mmol/L BUN 11 (7-18) mg/dL Creatinine 0.80 (0.51-1.17) mg/dL Est Cr Clr Drug Dosing 56.78 mL/min Estimated GFR (MDRD) > 60 mL/min Glucose 109 H (74-106) mg/dL Calcium 7.8 L (8.5-10.1) mg/dL Total Bilirubin 0.7 (0.2-1.0) mg/dL AST 36 (15-37) U/L ALT 42 (12-78) U/L Alkaline Phosphatase 51 (46-116) IU/L Total Protein 5.9 L (6.4-8.2) g/dL Albumin 3.4 (3.4-5.0) g/dL Med Orders - Current: Current Medications Acetaminophen (Tylenol) 650 mg PO Q3H PRN PRN Reason: Pain/Fever Last Admin: 12/12/16 16:23 Dose: 650 mg Albuterol (Proventil Neb Soln) 2.5 mg NEB Q6H PRN PRN Reason: dyspnea/wheeze Amlodipine Besylate (Norvasc) 10 mg PO DAILY [facility] Artificial Tears (Liquitears 1.4% Ophth Soln) 0 ml EYEBOTH TID [facility] Last Admin: 12/12/16 19:20 Dose: 1 drop Famotidine (Pepcid) 20 mg IVPUSH BID [facility] Last Admin: 12/12/16 19:20 Dose: 20 mg Fentanyl (Sublimaze) 25 mcg IVPUSH Q3H PRN PRN Reason: Pain Furosemide (Lasix) 20 mg PO DAILY [facility] Metronidazole 500 mg/ Premix 100 mls @ 100 mls/hr IV Q8H [facility] Last Admin: 12/12/16 19:17 Dose: 100 mls/hr Ciprofloxacin/Dextrose 400 mg/ (Premix) 200 mls @ 200 mls/hr IV Q12HR [facility] Last Admin: 12/12/16 21:06 Dose: 200 mls/hr Sodium Chloride (Normal Saline) 1,000 mls @ 50 mls/hr IV ASDIRECTED [facility] Lisinopril (Prinivil) 40 mg PO DAILY@1800 [facility] Last Admin: 12/12/16 19:25 Dose: 40 mg Lorazepam (Ativan) 0.5 mg PO TID@0800,1400,2000 [facility] Last Admin: 12/12/16 19:22 Dose: 0.5 mg Nitroglycerin (Nitrostat) 0.4 mg SL Q5M PRN PRN Reason: Chest Pain Ondansetron HCl (Zofran) 4 mg IVPUSH Q4H PRN PRN Reason: Nausea/Vomiting Promethazine HCl (Phenergan) 12.5 mg IM Q6H PRN PRN Reason: Nausea/Vomiting Sodium Chloride (Saline Flush) 10 ml FLUSH ASDIRECTED PRN PRN Reason: Keep Vein Open Last Admin: 12/12/16 01:32 Dose: 10 ml Sodium Chloride (Saline Flush) 10 ml FLUSH Q12HR [facility] Last Admin: 12/12/16 19:29 Dose: 10 ml Tramadol HCl (Ultram) 50 mg PO Q8H PRN PRN Reason: Pain Discontinued Medications Amlodipine Besylate (Norvasc) 5 mg PO ONETIME ONE Stop: 12/12/16 16:01 Last Admin: 12/12/16 16:23 Dose: 5 mg Enalaprilat (Vasotec Iv) 0.625 mg IVPUSH Q6H [facility] Last Admin: 12/12/16 11:09 Dose: 0.625 mg Sodium Chloride (Normal Saline) 1,000 mls @ 75 mls/hr IV ASDIRECTED [facility] Last Admin: 12/12/16 07:25 Dose: 75 mls/hr Iopamidol (Isovue-300 (61%)) 100 ml IVPUSH ONETIME ONE Stop: 12/11/16 09:01 Last Admin: 12/11/16 10:04 Dose: 100 ml Lorazepam (Ativan) 0.5 mg PO ONETIME ONE Stop: 12/12/16 16:01 Last Admin: 12/12/16 16:22 Dose: 0.5 mg Nitroglycerin (Nitrostat) 0.4 mg SL ASDIRECTED PRN PRN Reason: Chest Pain Sodium Chloride (Saline Flush) 10 ml FLUSH ASDIRECTED PRN PRN Reason: Keep Vein Open Last Admin: 12/11/16 10:13 Dose: 10 ml - Exam General: alert, mild distress HEENT: Mucous membr. moist/pink, Other (hard of hearing) Neck: trachea midline, no JVD Lungs: Clear to auscultation Cardiovascular: Regular Rate, Regular Rhythm Abdomen: bowel sounds present, soft, no tenderness, distension (mild) (Male) Exam: Deferred Back Exam: Normal Inspection Extremities: no edema, no calf tenderness Skin: warm, dry, intact Neurological: no new focal deficit Psy/Mental Status: alert, anxious - Problem List & Annotations (1) Abdominal pain SNOMED Code(s): 84967476 Code(s): R10.9 - UNSPECIFIED ABDOMINAL PAIN Status: Acute Priority: High Current Visit: No (2) Atypical chest pain SNOMED Code(s): 397992635 Code(s): R07.89 - OTHER CHEST PAIN Status: Acute Priority: High Current Visit: No (3) Bradycardia SNOMED Code(s): 91930350 Code(s): R00.1 - BRADYCARDIA, UNSPECIFIED Status: Acute Priority: Medium Current Visit: No (4) Constipation SNOMED Code(s): 34098095 Code(s): K59.00 - CONSTIPATION, UNSPECIFIED Status: Acute Priority: High Current Visit: No Qualifiers: Constipation type: unspecified constipation type Qualified Code(s): K59.00 - Constipation, unspecified (5) Hyponatremia SNOMED Code(s): 31033200 Code(s): E87.1 - HYPO-OSMOLALITY AND HYPONATREMIA Status: Acute Current Visit: No (6) Neck and shoulder pain SNOMED Code(s): 87181562 Code(s): M54.2 - CERVICALGIA; M25.519 - PAIN IN UNSPECIFIED SHOULDER Status : Acute Priority: Medium Current Visit: No - Problem List Review Problem List Initiated/Reviewed/Updated: Yes - My Orders Last 24 Hours: My Active Orders 12/12/16 15:31 Consult to Physical Therapy [PT Evaluation and Treatment] [CONS] Routine 12/12/16 15:32 Consult to Occupational Therapy [OT Evaluation and Treatment] [CONS] Routine 12/12/16 16:00 Sodium Chloride 0.9% [Normal Saline] 1,000 ml IV ASDIRECTED traMADol [Ultram] 50 mg PO Q8H PRN 12/12/16 18:00 Lisinopril [Prinivil] 40 mg PO DAILY@1800 12/12/16 20:00 LORazepam [Ativan] 0.5 mg PO TID@0800,1400,2000 12/12/16 Lunch Clear Liquid Diet [DIET] 12/13/16 05:11 CBC WITH AUTO DIFF [HEME] DAILY CMP [COMPREHENSIVE METABOLIC PN,CMP] [CHEM] DAILY 12/13/16 08:00 Furosemide [Lasix] 20 mg PO DAILY amLODIPine [Norvasc] 10 mg PO DAILY - Plan Plan:: 12/10/16 Aquilino Elam MD Abdomenal pain and distention. Anorexia and emesis. Laxatives (mag citrate x2) and suppository very little results.Admit inpatient for IV fluids. 12/11/16 Aquilino Elam MD He is feeling better today. After CT oral contrast he had a large bowel movement. CT scan results pending. He says he has URI and headache. 12/12/16 Aquilino Elam MD He felt better this AM. Had another bowel movement. Now after drinking the liquid diet he thinks he is getting distended again. Although he is going to have another bowel movement. CT scan no obstruction. He is very nervous. Medications adjusted. There are no acute care beds available at the [facility].
[2016-12-12] MEDS: Albuterol 0.083% 2.5 MG/3 ML Neb Soln NEB PRN (23:59)
[2016-12-13] MEDS: metroNIDAZOLE/Normal Saline 500 MG in Premix Bag 1 BAG IV SCH ×3 (01:20→17:39)
[2016-12-13 07:13] LABS: CHLORIDE,CL 101 mmol/L (98-107); SODIUM,NA 135 mmol/L (136-145)
[2016-12-13] MEDS: LORazepam 0.5 MG Tab PO SCH ×3 (08:11→19:25)
[2016-12-13] MEDS: Furosemide 20 MG Tab PO SCH (08:13)
[2016-12-13] MEDS: amLODIPine 5 MG Tab PO SCH (08:14)
[2016-12-13] MEDS: Famotidine 20 MG/2 ML SDV IVPUSH SCH ×2 (08:16→17:37)
[2016-12-13] MEDS: Polyvinyl Alcohol 1.4% Ophth Soln 15 ML Bottle EYEBOTH SCH ×3 (08:19→17:39)
[2016-12-13] MEDS: Ciprofloxacin in D5W 400 MG in Premix Bag 1 BAG IV SCH ×4 (08:21→19:25)
[2016-12-13] MEDS: Sodium Chloride 0.9% 10 ML Syringe FLUSH SCH ×2 (10:19→19:24)
[2016-12-13] MEDS ORDERED: Potassium Chloride 20 MEQ Tab.ER PO ONE (11:30)
[2016-12-13] MEDS: Acetaminophen 325 MG Tab PO PRN ×2 (15:10→21:10)
[2016-12-13] MEDS: Lisinopril 20 MG Tab PO SCH (17:36)
[2016-12-13] MEDS ORDERED: Potassium Chloride 10 MEQ Tab.ER PO ONE (18:00)
[2016-12-13] MEDS: Albuterol 0.083% 2.5 MG/3 ML Neb Soln NEB PRN (21:11)
--- NOTE | 2016-12-13 21:35 | PCM.PN ---
- General Info Date of Service: 12/13/16 Admission Dx/Problem (Free Text): Admission Diagnosis/Problem Admission Diagnosis/Problem Abdominal pain Functional Status: Reports: pain controlled, tolerating diet, ambulating - Review of Systems General: Reports: No Symptoms HEENT: Reports: headaches Pulmonary: Reports: no symptoms Cardiovascular: Reports: No Symptoms Gastrointestinal: Reports: Decreased appetite, Other (he thinks his stomach might be "blowing" up again but still having bowel movements) Genitourinary: Reports: no symptoms Musculoskeletal: Reports: no symptoms Skin: Reports: no symptoms Neurological: Reports: No Symptoms Psychiatric: Reports: anxiety - Patient Data Vitals - most recent: Last Vital Signs Temp 98.3 F 12/13/16 16:00 Pulse 56 L 12/13/16 16:00 Resp 17 12/13/16 16:00 BP 140/63 12/13/16 17:36 Pulse Ox 92 L 12/13/16 16:00 Weight - most recent: 175 lb 15.991 oz I&O - last 24 hours: Intake & Output 12/13/16 12/13/16 12/13/16 06:59 14:59 22:59 Intake Total 2186 240 240 Output Total 125 Balance 2186 115 240 Lab Results last 24 hrs: Laboratory Results - last 24 hr 12/13/16 12/13/16 Range/Units 06:35 06:35 WBC 7.6 (4.0-10.2) K/uL RBC 4.16 L (4.33-5.41) M/uL Hgb 12.4 L (13.1-16.8) g/dL Hct 35.8 L (39.0-49.0) % MCV 86.1 (84.0-98.0) fL MCH 29.8 (28.2-33.3) pg MCHC 34.6 (31.7-36.0) g/dL RDW 12.9 (11.2-14.1) % Plt Count 253 (150-350) K/uL Neut % (Auto) 64.2 (45.0-80.0) % Lymph % (Auto) 19.3 (10.0-50.0) % [place] % (Auto) 11.8 (2.0-14.0) % Eos % (Auto) 4.3 (0.0-5.0) % Baso % (Auto) 0.4 (0.0-2.0) % Neut # (Auto) 4.89 (1.40-7.00) K/uL Lymph # (Auto) 1.47 (0.50-3.50) K/uL [place] # (Auto) 0.90 (0.00-1.00) K/uL Eos # (Auto) 0.33 (0.00-0.50) K/uL Baso # (Auto) 0.03 (0.00-0.20) K/uL Sodium 135 L (136-145) mmol/L Potassium 3.4 L (3.5-5.1) mmol/L Chloride 101 (98-107) mmol/L Carbon Dioxide 25.7 (21.0-32.0) mmol/L BUN 7 (7-18) mg/dL Creatinine 0.72 (0.51-1.17) mg/dL Est Cr Clr Drug Dosing 63.09 mL/min Estimated GFR (MDRD) > 60 mL/min Glucose 134 H (74-106) mg/dL Calcium 8.2 L (8.5-10.1) mg/dL Total Bilirubin 0.7 (0.2-1.0) mg/dL AST 41 H (15-37) U/L ALT 47 (12-78) U/L Alkaline Phosphatase 52 (46-116) IU/L Total Protein 6.0 L (6.4-8.2) g/dL Albumin 3.6 (3.4-5.0) g/dL Med Orders - Current: Current Medications Acetaminophen (Tylenol) 650 mg PO Q3H PRN PRN Reason: Pain/Fever Last Admin: 12/13/16 21:10 Dose: 650 mg Albuterol (Proventil Neb Soln) 2.5 mg NEB Q6H PRN PRN Reason: dyspnea/wheeze Last Admin: 12/13/16 21:11 Dose: 2.5 mg Amlodipine Besylate (Norvasc) 10 mg PO DAILY [facility] Last Admin: 12/13/16 08:14 Dose: 10 mg Artificial Tears (Liquitears 1.4% Ophth Soln) 0 ml EYEBOTH TID [facility] Last Admin: 12/13/16 17:39 Dose: 1 drop Famotidine (Pepcid) 20 mg IVPUSH BID [facility] Last Admin: 12/13/16 17:37 Dose: 20 mg Fentanyl (Sublimaze) 25 mcg IVPUSH Q3H PRN PRN Reason: Pain Furosemide (Lasix) 20 mg PO DAILY [facility] Last Admin: 12/13/16 08:13 Dose: 20 mg Metronidazole 500 mg/ Premix 100 mls @ 100 mls/hr IV Q8H [facility] Last Admin: 12/13/16 17:39 Dose: 100 mls/hr Ciprofloxacin/Dextrose 400 mg/ (Premix) 200 mls @ 200 mls/hr IV Q12HR [facility] Last Admin: 12/13/16 19:25 Dose: 200 mls/hr Sodium Chloride (Normal Saline) 1,000 mls @ 50 mls/hr IV ASDIRECTED [facility] Last Admin: 12/13/16 01:21 Dose: 50 mls/hr Lisinopril (Prinivil) 40 mg PO DAILY@1800 [facility] Last Admin: 12/13/16 17:36 Dose: 40 mg Lorazepam (Ativan) 0.5 mg PO TID@0800,1400,2000 [facility] Last Admin: 12/13/16 19:25 Dose: 0.5 mg Nitroglycerin (Nitrostat) 0.4 mg SL Q5M PRN PRN Reason: Chest Pain Ondansetron HCl (Zofran) 4 mg IVPUSH Q4H PRN PRN Reason: Nausea/Vomiting Promethazine HCl (Phenergan) 12.5 mg IM Q6H PRN PRN Reason: Nausea/Vomiting Sodium Chloride (Saline Flush) 10 ml FLUSH ASDIRECTED PRN PRN Reason: Keep Vein Open Last Admin: 12/12/16 01:32 Dose: 10 ml Sodium Chloride (Saline Flush) 10 ml FLUSH Q12HR [facility] Last Admin: 12/13/16 19:24 Dose: Not Given Tramadol HCl (Ultram) 50 mg PO Q8H PRN PRN Reason: Pain Discontinued Medications Amlodipine Besylate (Norvasc) 5 mg PO ONETIME ONE Stop: 12/12/16 16:01 Last Admin: 12/12/16 16:23 Dose: 5 mg Enalaprilat (Vasotec Iv) 0.625 mg IVPUSH Q6H [facility] Last Admin: 12/12/16 11:09 Dose: 0.625 mg Sodium Chloride (Normal Saline) 1,000 mls @ 75 mls/hr IV ASDIRECTED [facility] Last Admin: 12/12/16 07:25 Dose: 75 mls/hr Iopamidol (Isovue-300 (61%)) 100 ml IVPUSH ONETIME ONE Stop: 12/11/16 09:01 Last Admin: 12/11/16 10:04 Dose: 100 ml Lorazepam (Ativan) 0.5 mg PO ONETIME ONE Stop: 12/12/16 16:01 Last Admin: 12/12/16 16:22 Dose: 0.5 mg Nitroglycerin (Nitrostat) 0.4 mg SL ASDIRECTED PRN PRN Reason: Chest Pain Potassium Chloride (Klor-Con M20) 40 meq PO ONETIME ONE Stop: 12/13/16 11:31 Last Admin: 12/13/16 11:48 Dose: 40 meq Potassium Chloride (Klor-Con 10) 20 meq PO ONETIME ONE Stop: 12/13/16 18:01 Last Admin: 12/13/16 17:33 Dose: 20 meq Sodium Chloride (Saline Flush) 10 ml FLUSH ASDIRECTED PRN PRN Reason: Keep Vein Open Last Admin: 12/11/16 10:13 Dose: 10 ml - Exam General: alert, cooperative HEENT: Mucous membr. moist/pink Neck: trachea midline, no JVD Lungs: Clear to auscultation, Normal respiratory effort Cardiovascular: Regular Rate, Regular Rhythm Abdomen: bowel sounds present, soft, no tenderness, no distension (Male) Exam: No Hernia Back Exam: Normal Inspection Extremities: no edema, no calf tenderness Skin: warm, dry, intact, ecchymosis (from IV starts) Neurological: no new focal deficit Psy/Mental Status: alert, normal affect, anxious - Problem List & Annotations (1) Abdominal pain SNOMED Code(s): 71660044 Code(s): R10.9 - UNSPECIFIED ABDOMINAL PAIN Status: Acute Priority: High Current Visit: No (2) Atypical chest pain SNOMED Code(s): 576427259 Code(s): R07.89 - OTHER CHEST PAIN Status: Acute Priority: High Current Visit: No (3) Bradycardia SNOMED Code(s): 58435446 Code(s): R00.1 - BRADYCARDIA, UNSPECIFIED Status: Acute Priority: Medium Current Visit: No (4) Constipation SNOMED Code(s): 93311371 Code(s): K59.00 - CONSTIPATION, UNSPECIFIED Status: Acute Priority: High Current Visit: No Qualifiers: Constipation type: unspecified constipation type Qualified Code(s): K59.00 - Constipation, unspecified (5) Hyponatremia SNOMED Code(s): 06769578 Code(s): E87.1 - HYPO-OSMOLALITY AND HYPONATREMIA Status: Acute Current Visit: No (6) Neck and shoulder pain SNOMED Code(s): 12977377 Code(s): M54.2 - CERVICALGIA; M25.519 - PAIN IN UNSPECIFIED SHOULDER Status : Acute Priority: Medium Current Visit: No (7) Diverticula of colon SNOMED Code(s): 724083445, 514595189 Code(s): K57.30 - DVRTCLOS OF LG INT W/O PERFORATION OR ABSCESS W/O BLEEDING Status: Acute Priority: High Current Visit: Yes (8) Anxiety about health SNOMED Code(s): 746505146 Code(s): F41.8 - OTHER SPECIFIED ANXIETY DISORDERS Status: Acute Priority : High Current Visit: Yes (9) Comfort measures only status SNOMED Code(s): 96263788426423 Code(s): Z51.5 - ENCOUNTER FOR PALLIATIVE CARE Status: Acute Priority: Medium Current Visit: Yes (10) Hypokalemia due to loss of potassium SNOMED Code(s): 53039079 Code(s): E87.6 - HYPOKALEMIA Status: Acute Priority: High Current Visit : Yes - Problem List Review Problem List Initiated/Reviewed/Updated: Yes - My Orders Last 24 Hours: My Active Orders 12/13/16 05:11 Abdomen 2V AP Flat Upright [CR] Routine 12/13/16 08:00 Furosemide [Lasix] 20 mg PO DAILY amLODIPine [Norvasc] 10 mg PO DAILY 12/13/16 Lunch Full Liquid Diet [DIET] 12/14/16 05:11 CBC WITH AUTO DIFF [HEME] Routine CMP [COMPREHENSIVE METABOLIC PN,CMP] [CHEM] Routine - Plan Plan:: 12/10/16 Aquilino Elam MD Abdomenal pain and distention. Anorexia and emesis. Laxatives (mag citrate x2) and suppository very little results.Admit inpatient for IV fluids. 12/11/16 Aquilino Elam MD He is feeling better today. After CT oral contrast he had a large bowel movement. CT scan results pending. He says he has URI and headache. 12/12/16 Aquilino Elam MD He felt better this AM. Had another bowel movement. Now after drinking the liquid diet he thinks he is getting distended again. Although he is going to have another bowel movement. CT scan no obstruction. He is very nervous. Medications adjusted. There are no acute care beds available at the [facility]. 12/13/16 Aquilino Elam MD Stomach might be blowing up again. Hypokalemia. Will replacement. He is very nervous about his health.
[2016-12-14] MEDS: metroNIDAZOLE/Normal Saline 500 MG in Premix Bag 1 BAG IV SCH ×2 (01:39→10:21)
[2016-12-14] MEDS: Sodium Chloride 0.9% 10 ML Syringe FLUSH PRN (01:39)
[2016-12-14] MEDS: Acetaminophen 325 MG Tab PO PRN (07:30)
[2016-12-14] MEDS: Furosemide 20 MG Tab PO SCH (07:31)
[2016-12-14] MEDS: Polyvinyl Alcohol 1.4% Ophth Soln 15 ML Bottle EYEBOTH SCH ×2 (07:31→12:00)
[2016-12-14] MEDS: amLODIPine 5 MG Tab PO SCH (07:31)
[2016-12-14] MEDS: Sodium Chloride 0.9% 10 ML Syringe FLUSH SCH (07:32)
[2016-12-14] MEDS: LORazepam 0.5 MG Tab PO SCH (07:32)
[2016-12-14] MEDS: Famotidine 20 MG/2 ML SDV IVPUSH SCH (07:32)
[2016-12-14 07:33] VITALS: BP 129/76
[2016-12-14] MEDS ORDERED: methylPREDNISolone Sodium Succinate 40 MG/1 ML SDV IVPUSH ONE (08:00)
[2016-12-14] MEDS ORDERED: Potassium Chloride 10 MEQ Tab.ER PO SCH (08:00)
[2016-12-14 08:17] LABS: CHLORIDE,CL 102 mmol/L (98-107); SODIUM,NA 137 mmol/L (136-145)
--- NOTE | 2016-12-14 09:59 | PCM.PN ---
- General Info Date of Service: 12/14/16 Admission Dx/Problem (Free Text): Admission Diagnosis/Problem Admission Diagnosis/Problem Abdominal pain Functional Status: Reports: pain controlled, tolerating diet, ambulating - Review of Systems General: Reports: No Symptoms HEENT: Reports: no symptoms Pulmonary: Reports: no symptoms Cardiovascular: Reports: No Symptoms Gastrointestinal: Reports: No symptoms Genitourinary: Reports: no symptoms Musculoskeletal: Reports: no symptoms Skin: Reports: no symptoms Neurological: Reports: No Symptoms Psychiatric: Reports: anxiety - Patient Data Vitals - most recent: Last Vital Signs Temp 97.9 F 12/14/16 08:00 Pulse 64 12/14/16 08:00 Resp 17 12/14/16 08:00 BP 129/76 12/14/16 08:00 Pulse Ox 98 12/14/16 08:00 Weight - most recent: 175 lb 15.991 oz I&O - last 24 hours: Intake & Output 12/13/16 12/14/16 12/14/16 22:59 06:59 14:59 Intake Total 440 900 380 Output Total 250 Balance 440 650 380 Lab Results last 24 hrs: Laboratory Results - last 24 hr 12/14/16 12/14/16 Range/Units 07:15 07:15 WBC 6.4 (4.0-10.2) K/uL RBC 4.09 L (4.33-5.41) M/uL Hgb 12.2 L (13.1-16.8) g/dL Hct 35.5 L (39.0-49.0) % MCV 86.8 (84.0-98.0) fL MCH 29.8 (28.2-33.3) pg MCHC 34.4 (31.7-36.0) g/dL RDW 13.0 (11.2-14.1) % Plt Count 241 (150-350) K/uL Neut % (Auto) 58.0 (45.0-80.0) % Lymph % (Auto) 21.6 (10.0-50.0) % [place] % (Auto) 13.5 (2.0-14.0) % Eos % (Auto) 6.4 H (0.0-5.0) % Baso % (Auto) 0.5 (0.0-2.0) % Neut # (Auto) 3.73 (1.40-7.00) K/uL Lymph # (Auto) 1.39 (0.50-3.50) K/uL [place] # (Auto) 0.87 (0.00-1.00) K/uL Eos # (Auto) 0.41 (0.00-0.50) K/uL Baso # (Auto) 0.03 (0.00-0.20) K/uL Sodium 137 (136-145) mmol/L Potassium 3.7 (3.5-5.1) mmol/L Chloride 102 (98-107) mmol/L Carbon Dioxide 26.2 (21.0-32.0) mmol/L BUN 9 (7-18) mg/dL Creatinine 0.78 (0.51-1.17) mg/dL Est Cr Clr Drug Dosing 58.23 mL/min Estimated GFR (MDRD) > 60 mL/min Glucose 154 H (74-106) mg/dL Calcium 8.0 L (8.5-10.1) mg/dL Total Bilirubin 0.5 (0.2-1.0) mg/dL AST 47 H (15-37) U/L ALT 59 (12-78) U/L Alkaline Phosphatase 49 (46-116) IU/L Total Protein 5.8 L (6.4-8.2) g/dL Albumin 3.4 (3.4-5.0) g/dL Med Orders - Current: Current Medications Acetaminophen (Tylenol) 650 mg PO Q3H PRN PRN Reason: Pain/Fever Last Admin: 12/14/16 07:30 Dose: 650 mg Albuterol (Proventil Neb Soln) 2.5 mg NEB Q6H PRN PRN Reason: dyspnea/wheeze Last Admin: 12/13/16 21:11 Dose: 2.5 mg Amlodipine Besylate (Norvasc) 10 mg PO DAILY [facility] Last Admin: 12/14/16 07:31 Dose: 10 mg Artificial Tears (Liquitears 1.4% Ophth Soln) 0 ml EYEBOTH TID [facility] Last Admin: 12/14/16 07:31 Dose: 1 drop Famotidine (Pepcid) 20 mg IVPUSH BID [facility] Last Admin: 12/14/16 07:32 Dose: 20 mg Furosemide (Lasix) 20 mg PO DAILY [facility] Last Admin: 12/14/16 07:31 Dose: 20 mg Metronidazole 500 mg/ Premix 100 mls @ 100 mls/hr IV Q8H [facility] Last Admin: 12/14/16 01:39 Dose: 100 mls/hr Lisinopril (Prinivil) 40 mg PO DAILY@1800 [facility] Last Admin: 12/13/16 17:36 Dose: 40 mg Lorazepam (Ativan) 0.5 mg PO TID@0800,1400,2000 [facility] Last Admin: 12/14/16 07:32 Dose: 0.5 mg Nitroglycerin (Nitrostat) 0.4 mg SL Q5M PRN PRN Reason: Chest Pain Ondansetron HCl (Zofran) 4 mg IVPUSH Q4H PRN PRN Reason: Nausea/Vomiting Potassium Chloride (Klor-Con 10) 20 meq PO WITHBREAKFAST [facility] Last Admin: 12/14/16 07:31 Dose: 20 meq Promethazine HCl (Phenergan) 12.5 mg IM Q6H PRN PRN Reason: Nausea/Vomiting Sodium Chloride (Saline Flush) 10 ml FLUSH ASDIRECTED PRN PRN Reason: Keep Vein Open Last Admin: 12/14/16 01:39 Dose: 10 ml Sodium Chloride (Saline Flush) 10 ml FLUSH Q12HR [facility] Last Admin: 12/14/16 07:32 Dose: 10 ml Tramadol HCl (Ultram) 50 mg PO Q8H PRN PRN Reason: Pain Last Admin: 12/14/16 02:06 Dose: 50 mg Discontinued Medications Amlodipine Besylate (Norvasc) 5 mg PO ONETIME ONE Stop: 12/12/16 16:01 Last Admin: 12/12/16 16:23 Dose: 5 mg Enalaprilat (Vasotec Iv) 0.625 mg IVPUSH Q6H [facility] Last Admin: 12/12/16 11:09 Dose: 0.625 mg Fentanyl (Sublimaze) 25 mcg IVPUSH Q3H PRN PRN Reason: Pain Sodium Chloride (Normal Saline) 1,000 mls @ 75 mls/hr IV ASDIRECTED [facility] Last Admin: 12/12/16 07:25 Dose: 75 mls/hr Ciprofloxacin/Dextrose 400 mg/ (Premix) 200 mls @ 200 mls/hr IV Q12HR [facility] Last Admin: 12/13/16 19:25 Dose: 200 mls/hr Sodium Chloride (Normal Saline) 1,000 mls @ 50 mls/hr IV ASDIRECTED [facility] Last Admin: 12/13/16 01:21 Dose: 50 mls/hr Iopamidol (Isovue-300 (61%)) 100 ml IVPUSH ONETIME ONE Stop: 12/11/16 09:01 Last Admin: 12/11/16 10:04 Dose: 100 ml Lorazepam (Ativan) 0.5 mg PO ONETIME ONE Stop: 12/12/16 16:01 Last Admin: 12/12/16 16:22 Dose: 0.5 mg Methylprednisolone Sodium Succinate (Solu-Medrol) 40 mg IVPUSH ONETIME ONE Stop: 12/14/16 08:01 Last Admin: 12/14/16 07:32 Dose: 40 mg Nitroglycerin (Nitrostat) 0.4 mg SL ASDIRECTED PRN PRN Reason: Chest Pain Potassium Chloride (Klor-Con M20) 40 meq PO ONETIME ONE Stop: 12/13/16 11:31 Last Admin: 12/13/16 11:48 Dose: 40 meq Potassium Chloride (Klor-Con 10) 20 meq PO ONETIME ONE Stop: 12/13/16 18:01 Last Admin: 12/13/16 17:33 Dose: 20 meq Sodium Chloride (Saline Flush) 10 ml FLUSH ASDIRECTED PRN PRN Reason: Keep Vein Open Last Admin: 12/11/16 10:13 Dose: 10 ml - Exam Quality Assessment: DVT prophylaxis General: alert, oriented, cooperative HEENT: Pupils equal Neck: supple Lungs: Clear to auscultation, Normal respiratory effort Cardiovascular: Regular Rate, Irregular Rhythm, Murmurs Abdomen: bowel sounds present, soft, no tenderness, no distension Back Exam: Normal Inspection Extremities: no edema Peripheral Pulses: 1+: Dorsalis Pedis (L), Dorsalis Pedis (R) Skin: warm, dry, intact Neurological: no new focal deficit Psy/Mental Status: alert, normal affect, normal mood, anxious - Problem List & Annotations (1) Abdominal pain SNOMED Code(s): 71960322 Code(s): R10.9 - UNSPECIFIED ABDOMINAL PAIN Status: Acute Priority: High Current Visit: No (2) Anxiety about health SNOMED Code(s): 134295335 Code(s): F41.8 - OTHER SPECIFIED ANXIETY DISORDERS Status: Acute Priority : High Current Visit: Yes (3) Hypokalemia due to loss of potassium SNOMED Code(s): 95723964 Code(s): E87.6 - HYPOKALEMIA Status: Acute Priority: High Current Visit : Yes - Problem List Review Problem List Initiated/Reviewed/Updated: Yes - Plan Plan:: 12/10/16 Aquilino Elam MD Abdomenal pain and distention. Anorexia and emesis. Laxatives (mag citrate x2) and suppository very little results.Admit inpatient for IV fluids. 12/11/16 Aquilino Elam MD He is feeling better today. After CT oral contrast he had a large bowel movement. CT scan results pending. He says he has URI and headache. 12/12/16 Aquilino Elam MD He felt better this AM. Had another bowel movement. Now after drinking the liquid diet he thinks he is getting distended again. Although he is going to have another bowel movement. CT scan no obstruction. He is very nervous. Medications adjusted. There are no acute care beds available at the [facility]. 12/13/16 Aquilino Elam MD Stomach might be blowing up again. Hypokalemia. Will replacement. He is very nervous about his health. 12/14/2016 Patient is feeling much better, tolerating diet and had a large BM this morning. Patient is out walking in the halls and states ready to go home. Labs reviewed, potassium improved with oral replacement. XRays reviewed on 2016. patient is wondering if he should continue on the neb treatments as it helps to cough up the phlegm in the mornings. Discussed with Dr Rolle, patient is ready to be discharged back to the basic [facility] today. Demetria Lozano,TELEPHONE LINES REPAIRER
--- NOTE | 2016-12-14 10:25 | PCM.DCSUM1 ---
Discharge Summary - Hospital Course Free Text/Narrative:: Patient was admitted and treated for abdominal pain, Xrays and CT scan done. Patient slowly tolerated a diet and started to have regular bowel movements. Medication changes done and patient was taken off of some of his routine medications due to the abdominal pain. Zoloft stopped as patient was having hyponatremia. - Discharge Data Discharge Date: 12/14/16 Discharge Disposition: DC/Tfer to [facility] [employer] [facility] 65 Condition: Fair - Discharge Diagnosis/Problem(s) (1) Abdominal pain SNOMED Code(s): 22802469 ICD Code: R10.9 - UNSPECIFIED ABDOMINAL PAIN Status: Acute Priority: High Current Visit: No (2) Anxiety about health SNOMED Code(s): 595119550 ICD Code: F41.8 - OTHER SPECIFIED ANXIETY DISORDERS Status: Acute Priority: High Current Visit: Yes (3) Hypokalemia due to loss of potassium SNOMED Code(s): 99694382 ICD Code: E87.6 - HYPOKALEMIA Status: Acute Priority: High Current Visit: Yes - Patient Summary/Data Consults: Consultations 12/12/16 15:31 Consult to Physical Therapy [PT Evaluation and Treatment] [CONS] Routine 12/12/16 15:32 Consult to Occupational Therapy [OT Evaluation and Treatment] [CONS] Routine - Patient Instructions Diet: Regular Diet as Tolerated Diet, Other: [place] foods and then progress into regular diet as patient tolerates Activity: As Tolerated Showering/Bathing: May Shower Notify Provider of: Fever, Increased Pain Other/Special Instructions: Consult dietary regarding supplements. patient prefers Ensure clear. Follow up apointment in 2 weeks. BMP and CBC on Friday, November - Discharge Plan Prescriptions/Med Rec: LORazepam [Ativan] 0.5 mg PO TID@0800,1400,2000 #90 tablet Home Medications: Home Meds Aspirin [Halfprin] 81 mg PO DAILY 09/12/13 [History] Furosemide [Lasix] 20 mg PO DAILY 09/12/13 [History] Lisinopril [Zestril] 40 mg PO DAILY 09/12/13 [History] Omeprazole 20 mg PO DAILY 09/12/13 [History] amLODIPine [Norvasc] 10 mg PO DAILY 09/12/13 [History] Benzocaine [Anbesol] 1 applic TOP ASDIRECTED PRN 12/22/15 [History] Benzocaine/Benzethon Cl [Lanacane [facility] [place]] 1 applic TP ASDIRECTED PRN [History] Acetaminophen [Tylenol] 650 mg PO Q6H PRN #0 tablet 12/14/16 [Rx] Albuterol [IJD: Albuterol] 2.5 mg NEB Q6H PRN #0 nebule 12/14/16 [Rx] Furosemide [Lasix] 20 mg PO DAILY tablet 12/14/16 [Rx] LORazepam [Ativan] 0.5 mg PO TID@0800,1400,2000 #90 tablet 12/14/16 [Rx] Lisinopril [Prinivil] 40 mg PO DAILY@1800 tablet 12/14/16 [Rx] Nitroglycerin [IJP: Nitroglycerin] 0.4 mg SL Q5M PRN #0 tablet, sublingual 12/14 [Rx] Polyvinyl Alcohol [LiquiTears 1.4% Ophth Soln] 0 ml EYEBOTH TID bottle [Rx] Potassium Chloride [Klor-Con 10] 10 meq PO WITHBREAKFAST #90 tab.er 12/14/16 [Rx ] amLODIPine [Norvasc] 10 mg PO DAILY tablet 12/14/16 [Rx] traMADol [Ultram] 50 mg PO Q8H PRN #0 tablet 12/14/16 [Rx] Referrals: Estephania Matias MD [Primary Care Provider] - - Discharge Summary/Plan Comment DC Time >30 min.: No Discharge Summary/Plan Comment: Patient is transferred to [facility]. Will follow up in 2 weeks with an appointment at the [facility]. Labs ordered for 12/16/2016 to follow the potassium. Zoloft discontinued due to hyponatremia but will continue on the Ativan TID. Patient's potassium corrected with po potassium, will continue oral potassium, stop antibiotics. Medication changes made due to the patient's stomach pain, these medication were held during the hospitalization with improvement of the stomach pain. Patient would like to continue to wear DARREN stockings as his legs feel better. Dietary consult ordered for supplements and patient has questions in regards to what foods would be alright to eat. Demetria Lozano CNP - Patient Data Vitals - Most Recent: Last Vital Signs Temp 97.9 F 12/14/16 08:00 Pulse 64 12/14/16 08:00 Resp 17 12/14/16 08:00 BP 129/76 12/14/16 08:00 Pulse Ox 98 12/14/16 08:00 Weight - Most Recent: 175 lb 15.991 oz I&O - Last 24 hours: Intake & Output 12/13/16 12/14/16 12/14/16 22:59 06:59 14:59 Intake Total 440 900 380 Output Total 250 Balance 440 650 380 Lab Results - Last 24 hrs: Laboratory Results - last 24 hr 12/14/16 12/14/16 Range/Units 07:15 07:15 WBC 6.4 (4.0-10.2) K/uL RBC 4.09 L (4.33-5.41) M/uL Hgb 12.2 L (13.1-16.8) g/dL Hct 35.5 L (39.0-49.0) % MCV 86.8 (84.0-98.0) fL MCH 29.8 (28.2-33.3) pg MCHC 34.4 (31.7-36.0) g/dL RDW 13.0 (11.2-14.1) % Plt Count 241 (150-350) K/uL Neut % (Auto) 58.0 (45.0-80.0) % Lymph % (Auto) 21.6 (10.0-50.0) % Starke % (Auto) 13.5 (2.0-14.0) % Eos % (Auto) 6.4 H (0.0-5.0) % Baso % (Auto) 0.5 (0.0-2.0) % Neut # (Auto) 3.73 (1.40-7.00) K/uL Lymph # (Auto) 1.39 (0.50-3.50) K/uL Starke # (Auto) 0.87 (0.00-1.00) K/uL Eos # (Auto) 0.41 (0.00-0.50) K/uL Baso # (Auto) 0.03 (0.00-0.20) K/uL Sodium 137 (136-145) mmol/L Potassium 3.7 (3.5-5.1) mmol/L Chloride 102 (98-107) mmol/L Carbon Dioxide 26.2 (21.0-32.0) mmol/L BUN 9 (7-18) mg/dL Creatinine 0.78 (0.51-1.17) mg/dL Est Cr Clr Drug Dosing 58.23 mL/min Estimated GFR (MDRD) > 60 mL/min Glucose 154 H (74-106) mg/dL Calcium 8.0 L (8.5-10.1) mg/dL Total Bilirubin 0.5 (0.2-1.0) mg/dL AST 47 H (15-37) U/L ALT 59 (12-78) U/L Alkaline Phosphatase 49 (46-116) IU/L Total Protein 5.8 L (6.4-8.2) g/dL Albumin 3.4 (3.4-5.0) g/dL Med Orders - Current: Current Medications Acetaminophen (Tylenol) 650 mg PO Q3H PRN PRN Reason: Pain/Fever Last Admin: 12/14/16 07:30 Dose: 650 mg Albuterol (Proventil Neb Soln) 2.5 mg NEB Q6H PRN PRN Reason: dyspnea/wheeze Last Admin: 12/13/16 21:11 Dose: 2.5 mg Amlodipine Besylate (Norvasc) 10 mg PO DAILY [facility] Last Admin: 12/14/16 07:31 Dose: 10 mg Artificial Tears (Liquitears 1.4% Ophth Soln) 0 ml EYEBOTH TID [facility] Last Admin: 12/14/16 07:31 Dose: 1 drop Famotidine (Pepcid) 20 mg IVPUSH BID [facility] Last Admin: 12/14/16 07:32 Dose: 20 mg Furosemide (Lasix) 20 mg PO DAILY [facility] Last Admin: 12/14/16 07:31 Dose: 20 mg Metronidazole 500 mg/ Premix 100 mls @ 100 mls/hr IV Q8H [facility] Last Admin: 12/14/16 01:39 Dose: 100 mls/hr Lisinopril (Prinivil) 40 mg PO DAILY@1800 [facility] Last Admin: 12/13/16 17:36 Dose: 40 mg Lorazepam (Ativan) 0.5 mg PO TID@0800,1400,2000 [facility] Last Admin: 05/20/17 07:32 Dose: 0.5 mg Nitroglycerin (Nitrostat) 0.4 mg SL Q5M PRN PRN Reason: Chest Pain Ondansetron HCl (Zofran) 4 mg IVPUSH Q4H PRN PRN Reason: Nausea/Vomiting Potassium Chloride (Klor-Con 10) 20 meq PO WITHBREAKFAST [facility] Last Admin: 12/14/16 07:31 Dose: 20 meq Promethazine HCl (Phenergan) 12.5 mg IM Q6H PRN PRN Reason: Nausea/Vomiting Sodium Chloride (Saline Flush) 10 ml FLUSH ASDIRECTED PRN PRN Reason: Keep Vein Open Last Admin: 12/14/16 01:39 Dose: 10 ml Sodium Chloride (Saline Flush) 10 ml FLUSH Q12HR [facility] Last Admin: 12/14/16 07:32 Dose: 10 ml Tramadol HCl (Ultram) 50 mg PO Q8H PRN PRN Reason: Pain Last Admin: 12/14/16 02:06 Dose: 50 mg Discontinued Medications Amlodipine Besylate (Norvasc) 5 mg PO ONETIME ONE Stop: 12/12/16 16:01 Last Admin: 12/12/16 16:23 Dose: 5 mg Enalaprilat (Vasotec Iv) 0.625 mg IVPUSH Q6H [facility] Last Admin: 12/12/16 11:09 Dose: 0.625 mg Fentanyl (Sublimaze) 25 mcg IVPUSH Q3H PRN PRN Reason: Pain Sodium Chloride (Normal Saline) 1,000 mls @ 75 mls/hr IV ASDIRECTED [facility] Last Admin: 12/12/16 07:25 Dose: 75 mls/hr Ciprofloxacin/Dextrose 400 mg/ (Premix) 200 mls @ 200 mls/hr IV Q12HR [facility] Last Admin: 12/13/16 19:25 Dose: 200 mls/hr Sodium Chloride (Normal Saline) 1,000 mls @ 50 mls/hr IV ASDIRECTED [facility] Last Admin: 12/13/16 01:21 Dose: 50 mls/hr Iopamidol (Isovue-300 (61%)) 100 ml IVPUSH ONETIME ONE Stop: 12/11/16 09:01 Last Admin: 12/11/16 10:04 Dose: 100 ml Lorazepam (Ativan) 0.5 mg PO ONETIME ONE Stop: 12/12/16 16:01 Last Admin: 12/12/16 16:22 Dose: 0.5 mg Methylprednisolone Sodium Succinate (Solu-Medrol) 40 mg IVPUSH ONETIME ONE Stop: 12/14/16 08:01 Last Admin: 12/14/16 07:32 Dose: 40 mg Nitroglycerin (Nitrostat) 0.4 mg SL ASDIRECTED PRN PRN Reason: Chest Pain Potassium Chloride (Klor-Con M20) 40 meq PO ONETIME ONE Stop: 12/13/16 11:31 Last Admin: 12/13/16 11:48 Dose: 40 meq Potassium Chloride (Klor-Con 10) 20 meq PO ONETIME ONE Stop: 12/13/16 18:01 Last Admin: 12/13/16 17:33 Dose: 20 meq Sodium Chloride (Saline Flush) 10 ml FLUSH ASDIRECTED PRN PRN Reason: Keep Vein Open Last Admin: 12/11/16 10:13 Dose: 10 ml *Q Meaningful Use (DIS) - VTE *Q VTE Criteria *Q: - Stroke *Q Stroke Criteria *Q: - AMI *Q AMI Criteria *Q:
== END 2016-12-14 13:20 | DRG 392 ==
LOC: LL.MS 15:57
PROVIDERS: ADMIT Family Medicine; ATTEND Family Medicine
DX: R10.9 Unspecified abdominal pain (principal); E87.1 Hypo-osmolality and hyponatremia; R07.89 Other chest pain; R00.1 Bradycardia, unspecified; K59.00 Constipation, unspecified; E87.6 Hypokalemia; M54.2 Cervicalgia; M25.519 Pain in unspecified shoulder; Z51.5 Encounter for palliative care; F41.8 Other specified anxiety disorders; K57.30 Diverticulosis of large intestine without perforation or abscess without bleeding; H35.30 Unspecified macular degeneration; H91.93 Unspecified hearing loss, bilateral; E78.00 Pure hypercholesterolemia, unspecified; I10 Essential (primary) hypertension; J44.9 Chronic obstructive pulmonary disease, unspecified; M19.90 Unspecified osteoarthritis, unspecified site; E11.40 Type 2 diabetes mellitus with diabetic neuropathy, unspecified; Z79.82 Long term (current) use of aspirin; Z79.899 Other long term (current) drug therapy; Z88.8 Allergy status to other drugs, medicaments and biological substances; Z88.6 Allergy status to analgesic agent
CPT/HCPCS: 36415; 71020; 74020; 74022; 74177; 80053; 81001; 82150; 82270; 83605; 83615; 83690; 83735; 84484; 85025; 85651; 86140; 93005; 94664; A9270-GY; J0744; J2920; J7030; J7050; J7620-GY; Q9967; S0028